=== PATIENT | male | born 1975 | race Caucasian/White ===

== ENCOUNTER 2018-01-27 05:26 | Emergency (ER) | payer OTHER ==
[2018-01-27 07:04] VITALS: BP 125/83; PULSE 87; TEMP 98.9
--- NOTE | 2018-01-27 07:44 | PDOC ---
Attending Attestation - HPI HPI: 01/27/18 08:47 The patient is a 42-year-old male with no significant past medical history, who presents to the emergency department today complaining of diffuse body aches for 2 days. The patient comes in today due to severe joint pain in all extremities. The patient reports a fever of 40 degrees centigrade and endorses a headache. He explains he had 1 episode like this in the past but the current pain is more severe. He also reports bloody stool for approximately 15 days. Of note, the patient works outdoors. Denies chest pain, back pain. Denies nausea, vomiting, diarrhea, constipation. Denies recent travel. Allergies: NKA Social history: Social alcohol. Surgical history: none reported Family history: none reported PCP: unknown - Physicial Exam PE: 01/27/18 08:49 ADULT Vitals: Triage vital signs reviewed General Appearance: No acute distress, well nourished, well developed Chest Wall: Nontender Cardiac: Regular rate and rhythm, no murmurs, no rubs, no gallops Lungs: Clear to auscultation bilateral, good air movement bilaterally Abdomen: Soft, nondistended, normal bowel sounds, nontender to palpation Genitourinary: Rectal: Exam deferred Extremities: Full range of motion to all extremities, no cyanosis, clubbing, or edema Skin: Warm and dry, no rashes or lesions, no rash, no petechiae - Medical Decision Making 01/27/18 10:12 Chest X-Ray was reviewed by Dr. Avalos and over-read by radiology. Impression: No evidence of active pulmonary disease. Documentation prepared by Jenifer Sanchez, acting as medical logistics specialist for Jaylon Avalos MD. <Jenifer Sanchez - Last Filed: 01/27/18 10:12> - Resident Resident Name: Marlyn Ag - ED Attending Attestation I have performed the following: I have examined & evaluated the patient, The case was reviewed & discussed with the resident, I agree w/resident's findings & plan, Exceptions are as noted - HPI HPI: 01/27/18 15:06 No elevated white blood cell count platelets normal CBC normal OX normal. Chest x-ray urinalysis unremarkable. Patient feels better after fluids and Tylenol Take panel Babesia Lyme and early velia are all still pending Differential diagnosis includes viral infection versus tickborne infection. - Medical Decision Making 42 years old with 2 day history of fever chills body aches. No travel no sick contacts mild headache no neck stiffness mild nausea no vomiting no diarrhea no abdominal pain no rashes does work outside occasionally Labs within normal limits chest x-ray urinalysis systems is no acute pathology. Status post IV fluids and Tylenol patient feels much better ambulate comfortably around the emergency department. At this time fever 2 days with no obvious source differential diagnosis includes viral infection versus tickborne infection. Tick panel including Lyme her lochia and Babesia have been sent. These results will not be available today. We've arranged for the patient to follow up tomorrow in our clinic where the results of these tests can be reviewed <Jaylon Avalos - Last Filed: 01/27/18 15:18>
--- NOTE | 2018-01-27 07:53 | PDOC ---
History of Present Illness - General Chief Complaint: Cold Symptoms Stated Complaint: BODY PAIN Time Seen by Provider: 01/27/18 07:14 History Source: Patient, Mechanical Spreader Operator Used Exam Limitations: Language Barrier - History of Present Illness Initial Comments: 01/27/18 08:08 HPI: *grounds restoration specialist was used Patient is a 42yo male with no significant PMH presenting to ED with son with complaints of body aches x 2 days. Patient states that he has been having "severe pain in his joints" with the spine and wrists hurting the most. Patient said he had experienced one episode like this 2 months ago but it went away with a home remedy of [place] and cinnamon. Pain is associated with fever which patient self reports was 40 degrees, headache and nausea. He has been taking acetaminophen for the pain. He denies congestion, cough, chest pain, abdominal pain, vomiting, diarrhea, urinary symptoms. He denies recent travel. Patient also states that he has noticed blood in his stool for the past 15 days but states that it has been going on for a while. PMH: As per HPI. PSH: R knee Meds: None Allergies: None Known Social: denies tobacco use, occasional alcohol use, denies illicit drug use Past History - Past Medical History Allergies/Adverse Reactions: Allergies Allergy/AdvReac Type Severity Reaction Status Date / Time No Known Allergies Allergy Verified 01/27/18 07:01 Home Medications: Ambulatory Orders NK [No Known Home Medication] 10/03/15 - Immunization History Immunization Up to Date: Yes - Suicide/Smoking/Psychosocial Hx Smoking History: Never smoked Have you smoked in the past 12 months: No Number of Cigarettes Smoked Daily: 0 Cigars Per Day: 0 Information on smoking cessation initiated: No Hx Alcohol Use: No Drug/Substance Use Hx: No Review of Systems - Review of Systems Comments:: 01/27/18 08:15 ROS: *Mechanical Spreader Operator was used* Constitutional: fevers, fatigue, NO chills HEENT: No Rhinorrhea, nasal congestion, visual changes Cardiovascular: No chest pain, syncope, palpitations, lightheadedness Respiratory: No Cough, SOB, Hemoptysis, Gastrointestinal: Nausea, blood in stools. No Abdominal pain, Vomiting, Constipation, Diarrhea, Melena Genitourinary: No Dysuria, Frequency, Urgency, Hesitancy, Hematuria, Flank pain Musculoskeletal: Arthralgia, Myalgia Skin: No rashes, itching, bruising, pallor Neurologic: Headache. No Numbness, Weakness, or Tingling 01/27/18 15:14 *Physical Exam - Vital Signs Last Vital Signs Temp Pulse Resp BP Pulse Ox 98.9 F 87 18 125/83 97 01/27/18 06:00 01/27/18 06:00 01/27/18 06:00 01/27/18 06:00 01/27/18 06:00 - Physical Exam Comments: 01/27/18 08:14 Physical Exam: General Appearance: Patient lying in bed. Nourished. No Apparent Distress HEENT: EOMI, HEIDI. No Pharyngeal Erythema, Tonsillar Exudate, Tonsillar Erythema Neck: No Cervical Lymphadenopathy Respiratory/Chest: Lungs Clear, Normal Breath Sounds. No Crackles, Rales, Rhonchi, Wheezing Cardiovascular: Regular Rhythm, Regular Rate. No JVD, Murmur, Gallops, Rubs Gastrointestinal/Abdominal: Normal Bowel Sounds, Soft. No Guarding, Rebound, Tenderness Musculoskeletal: No CVA Tenderness, no spinal tenderness, no joint tenderness, swelling or effusions Extremity: Normal Capillary Refill Integumentary: Normal Color, Dry, Warm. Surgical scar on R knee Neurologic: mailroom associate II-XII NML intact, Fully Oriented, Alert, Normal Mood/Affect, Normal Response, Motor Strength 5/5. 01/27/18 18:09 ED Treatment Course - LABORATORY CBC & Chemistry Diagram: 01/27/18 08:20 01/27/18 08:20 Medical Decision Making - Medical Decision Making 01/27/18 08:17 Patient is a 42 yo male with no significant PMH presenting with complaints of arthralgia x 2 days associated with headache and fatigue. Patient also reported having a fever of 40 degrees C. He has been taking Tylenol for the pain which somewhat relieved symptoms. He denies neck stiffness, changes in vision, chest pain, SOB, palpitations, abdominal pain, N/V/D, dysuria. He admitted to having blood in his stool for 15 days. He denied recent travel, illicit drug use and IV drug use. Possible causes of patient's symptoms include meningitis, sinusitis, flu, endocarditis, pericarditis, pneumonia, ischemic colitis, infectious colitis, Lyme Disease, Babesiosis, Ehrlicia. Because patient reported fever and joint pains concerning for infection. Blood cultures were drawn. FOBT also performed because patient reported blood in the stool. CBC and CMP ordered to evaluate hemoglobin and WBC as well as electrolyte balance. Due to the nature of patient's presentation and geographical location, we were concerned for Babesia, Lyme or Ehrlicia. Blood panels were drawn. Patient was given Tylenol for pain control. FOBT returned negative, abdominal causes for patients presentation were ruled out. CBC and CMP returned wnl which ruled out active infection. Labs for Lyme, Babesiosis and Ehrlicia will take longer to return. Patient reported relief with Tylenol and IVF. Since CBC and CMP returned wnl and vital signs were wnl, patient was deemed stable and discharged home with an appointment made at [facility] tomorrow morning. Patient was advised to go to the appointment and follow up with lab work that is still pending. Patient was given return precautions and verbalized understanding. 01/27/18 15:15 *DC/Admit/Observation/Transfer Diagnosis at time of Disposition: Myalgia Arthralgia Qualifiers: Joint pain location: unspecified Qualified Code(s): M25.50 - Pain in unspecified joint Headache Qualifiers: Headache type: unspecified Headache chronicity pattern: unspecified pattern - Discharge Dispostion Disposition: HOME Condition at time of disposition: Improved - Referrals - Patient Instructions Printed Discharge Instructions: DI for Arthralgia, DI for Headache Additional Instructions: You were seen today because you were complaining of body aches, headache and fever. We did blood tests and an xray to see if you were having an infection. The blood tests came back normal. There are additional blood tests that are checking for some organisms that may be causing your symptoms, but it may take a couple of days for the results to come back. You have also asked for us to find a primary care doctor for you because you do not have one. There is an appointment set up for you tomorrow, January 28, 2018 at 9:30 am at [address] Continue to take Tylenol or Motrin for pain. Please come back to the ED if your pain gets worse, your fever comes back, if you start getting severe headaches and neck pain. Thank you Print Language: TRISTANIAN - Post Discharge Activity
[2018-01-27] MEDS ORDERED: SODIUM CHLORIDE 500 ML IV STA (07:56)
[2018-01-27] MEDS ORDERED: ACETAMINOPHEN 1000 MG/100 ML VIAL (NON FORMULARY) IVPB ONE (07:56)
[2018-01-27] MEDS ORDERED: SODIUM CHLORIDE 1,000 ML IV STA (08:03)
[2018-01-27] MEDS ORDERED: ACETAMINOPHEN INJECTION 100 ML IVPB ONE (08:15)
[2018-01-27 08:31] LABS: BASO % 1.1 % (0-2.0); EOS % 0.4 % (0-4.5); HEMOGLOBIN 15.8 GM/dL (11.7-16.9); LYMPH % 48.6 % (8-40); MCH 31.4 pg (25.7-33.7); MCHC 33.7 g/dl (32.0-35.9); MEAN CELL VOLUME 93.1 fl (80-96); MEAN PLT VOLUME 8.6 fl (7.5-11.1); NEUT % 34.9 % (42.8-82.8); PLATELET COUNT 157 K/MM3 (134-434); RBC 5.05 M/mm3 (4.00-5.60); RDW 13.3 % (11.9-15.9)
[2018-01-27 08:44] LABS: URINE APPEARANCE CLEAR; URINE BILIRUBIN NEGATIVE (<2.0 mg/dL); URINE COLOR YELLOW; URINE GLUCOSE (UA) NEGATIVE (NEGATIVE); URINE KETONE 1+ (NEGATIVE); URINE LEUK ESTERASE NEGATIVE (NEGATIVE); URINE NITRITE NEGATIVE (NEGATIVE); URINE PROTEIN NEGATIVE (NEGATIVE); URINE UROBILINOGEN NEGATIVE mg/dL (0.2-1.0)
[2018-01-27 08:48] LABS: URINE APPEARANCE CLEAR; URINE BILIRUBIN NEGATIVE (<2.0 mg/dL); URINE COLOR YELLOW; URINE GLUCOSE (UA) NEGATIVE (NEGATIVE); URINE KETONE 1+ (NEGATIVE); URINE LEUK ESTERASE NEGATIVE (NEGATIVE); URINE NITRITE NEGATIVE (NEGATIVE); URINE PROTEIN NEGATIVE (NEGATIVE); URINE UROBILINOGEN NEGATIVE mg/dL (0.2-1.0)
[2018-01-27 09:03] LABS: ALK PHOS 82 U/L (45-117); ANION GAP 8 (8-16); BILIRUBIN,TOTAL 0.4 mg/dL (0.2-1.0); BLOOD UREA NITROGEN 12 mg/dL (7-18); CALCIUM 8.4 mg/dL (8.5-10.1); CHLORIDE 101 mmol/L (98-107); CO2 28 mmol/L (21-32); CREATININE 1.1 mg/dL (0.7-1.3); GLUCOSE,RANDOM 132 mg/dL (74-106); POTASSIUM 4.3 mmol/L (3.5-5.1); SGOT/AST 48 U/L (15-37); SGPT/ALT 68 U/L (12-78); SODIUM 137 mmol/L (136-145); TOT PROT 8.2 g/dl (6.4-8.2)
[2018-01-27] MEDS ORDERED: IBUPROFEN 600 MG TABLET (FP) PO ONE ×2 (09:36→09:55)
[2018-02-01 06:17] LABS: BABESIA MICROTI ANTIBODY IGG <1:10 (Neg:<1:10); BABESIA MICROTI ANTIBODY IGM <1:10 (Neg:<1:10); E. chaff IgG Negative (Neg:<1:64)
[2018-02-02 00:15] LABS: E. chaffeensis Negative (Negative)
== END 2018-01-27 10:56 | disposition home or self-care (01) ==
LOC: JER 05:26
PROC: 3E0337Z Introduction of Electrolytic and Water Balance Substance into Peripheral Vein, Percutaneous Approach (ICD-10-PCS; principal; 2018-01-27)
PROC: 3E033NZ Introduction of Analgesics, Hypnotics, Sedatives into Peripheral Vein, Percutaneous Approach (ICD-10-PCS; 2018-01-27)
DX: M79.1 Myalgia (principal); M54.89 Other dorsalgia; M25.532 Pain in left wrist; M25.531 Pain in right wrist; K92.1 Melena
CPT/HCPCS: 36415; 71045-TC-FY; 80053; 81003; 82272; 83605; 85025; 86618; 86666; 86753; 87040; 87086; 87798; 99281-25; J0131; J7030

== ENCOUNTER 2018-04-07 07:22 | Emergency (ER) | payer OTHER ==
[2018-04-07 07:31] VITALS: BP 121/80; PULSE 60; TEMP 97.8; BMI 26.6
--- NOTE | 2018-04-07 08:23 | PDOC ---
History of Present Illness - General Chief Complaint: Pain Stated Complaint: CYST BEHIND EAR Time Seen by Provider: 04/07/18 08:04 - History of Present Illness Initial Comments: 04/07/18 08:18 42 year old man who presents with boil behind the R ear that started 2 months ago and drained once with red PMHX: as in HPI PSHX: see below Meds: Allergies: Tob: Etoh: Rec drugs: PCP: Rigger Helper: [id number] Past History - Past Medical History Allergies/Adverse Reactions: Allergies Allergy/AdvReac Type Severity Reaction Status Date / Time No Known Allergies Allergy Verified 04/07/18 07:31 Home Medications: Ambulatory Orders Cephalexin Monohydrate [Keflex -] 500 mg PO Q6H 10 Days #40 capsule 04/07/18 COPD: No - Immunization History Immunization Up to Date: Yes - Suicide/Smoking/Psychosocial Hx Smoking History: Never smoked Have you smoked in the past 12 months: No Number of Cigarettes Smoked Daily: 0 Cigars Per Day: 0 Hx Alcohol Use: No Drug/Substance Use Hx: No *Physical Exam - Vital Signs Last Vital Signs Temp Pulse Resp BP Pulse Ox 97.8 F 60 16 121/80 98 04/07/18 07:23 04/07/18 07:23 04/07/18 07:23 04/07/18 07:23 04/07/18 07:23 *DC/Admit/Observation/Transfer Diagnosis at time of Disposition: Boil, Abscess - Discharge Dispostion Disposition: HOME Condition at time of disposition: Stable Decision to Admit order: No - Prescriptions Prescriptions: Cephalexin Monohydrate [Keflex -] 500 mg PO Q6H 10 Days #40 capsule - Referrals Referrals: Clari Hill MD [Staff Physician] - Christopher Ro MD [Staff Physician] - - Patient Instructions Printed Discharge Instructions: Telly DI for Skin Abscess Additional Instructions: You were seen in the ED for complaints of boil behind the R ear. In the ED you were evaluated and there does not appear to be an acute need for immediate hospitalization. You are advised to follow up with your primary care physician within 1 week. You were given a 10 day prescription to antibiotics and advised to take the medications as directed. You were given a referral for dermatology and ear, nose and throat specialists. Please follow up within 1 week. Return to the ED immediately if you experience worsening pain at the wound site , worsening or large amount of bleeding, pain in the jaw, fever, headache, nausea or vomiting. Usted fue visto en el departamento de emergencias por [facility]. En el servicio de urgencias fue evaluado y no parece antonia sade necesidad aguda de hospitalizacin inmediata. Se le recomienda realizar un seguimiento con ortiz mdico de atencin primaria dentro de 1 semana. Le dieron sade receta de 10 zhou para antibiticos y le recomendaron arcadio los medicamentos segn las indicaciones. Le dieron un referido para especialistas en dermatologa y otorrinolaringologa. Por favor haz un seguimiento dentro de 1 semana. Regrese al servicio de urgencias de inmediato si experimenta un empeoramiento del dolor en el sitio de la herida, empeoramiento o sade gran cantidad de sangrado, dolor en la mandbula, fiebre, dolor de serge, nuseas o vmitos. - Post Discharge Activity
[2018-04-07] MEDS ORDERED: CEPHALEXIN MONOHYDRATE 500 MG CAPSULE (UD) PO ONE (10:29)
[2018-04-07] MEDS ORDERED: CEPHALEXIN MONOHYDRATE 500 MG CAPSULE (UD) ONE (10:36)
== END 2018-04-07 10:48 | disposition home or self-care (01) ==
LOC: JER 07:22
DX: Q18.1 Preauricular sinus and cyst (principal)
CPT/HCPCS: 99281-25

== ENCOUNTER 2019-09-08 14:39 | Emergency (ER) | payer OTHER ==
[2019-09-08 15:04] VITALS: BP 122/82; PULSE 77; TEMP 98.2; BMI 30.9
--- NOTE | 2019-09-08 15:05 | PDOC ---
Rapid Medical Evaluation Time Seen by Provider: 09/08/19 14:46 Medical Evaluation: Allergies Allergy/AdvReac Type Severity Reaction Status Date / Time No Known Allergies Allergy Verified 04/07/18 07:31 Vital Signs Temp Pulse Resp BP Pulse Ox 98.2 F 77 17 122/82 100 09/08/19 14:54 09/08/19 14:54 09/08/19 14:54 09/08/19 14:54 09/08/19 14:54 09/08/19 15:05 CC: rash to penis PE: deferred Orders: nothing Patient will proceed to ED for evaluation. Discharge Disposition - Diagnosis Rash of penis - Referrals - Patient Instructions - Post Discharge Activity
--- NOTE | 2019-09-08 15:30 | PDOC ---
History of Present Illness - General Chief Complaint: Rash Stated Complaint: PAIN Time Seen by Provider: 09/08/19 14:46 History Source: Patient Exam Limitations: Clinical Condition - History of Present Illness Initial Comments: 09/08/19 15:41 Patient with no significant past medical history present with complaint of 2 months history of lesion to glans of the penis with burning sensation to tip of penis due to skin irritations. Patient is uncircumcised and reported using using [id number] aloe vera for symptoms for 2 months with no improvement. Patient believes symptoms was caused by dirty water in his shower from his apartment. Denies any other symptoms. Denies testicular pain or swelling. Denies penile discharge or burning with urination Timing/Duration: reports: other (2 months) Past History - Past Medical History Allergies/Adverse Reactions: Allergies Allergy/AdvReac Type Severity Reaction Status Date / Time No Known Allergies Allergy Verified 04/07/18 07:31 Home Medications: Ambulatory Orders Cephalexin Monohydrate [Keflex -] 500 mg PO Q6H 10 Days #40 capsule 04/07/18 Clotrimazole/Betamet Diprop [Lotrisone Cream (Small Tube)] 1 applic TP BID 7 Days #1 tube 09/08/19 Valacyclovir HCl [Valtrex -] 500 mg PO BID 5 Days #10 tablet 09/08/19 COPD: No - Immunization History Immunization Up to Date: Yes - Psycho Social/Smoking Cessation Hx Smoking History: Never smoked Have you smoked in the past 12 months: No Number of Cigarettes Smoked Daily: 0 Cigars Per Day: 0 Information on smoking cessation initiated: No Hx Alcohol Use: No Drug/Substance Use Hx: No Review of Systems - Review of Systems Able to Perform ROS?: Yes Is the patient limited Mauritian proficient: No Constitutional: No: Symptoms Reported, See HPI, Chills, Diaphoresis, Fever, Loss of Appetite, Malaise, Night Sweats, Weakness, Weight Stable, Unintentional Wgt. Loss, Unexplained wgt Loss, Other HEENTM: No: Symptoms Reported, See HPI, Eye Pain, Blurred Vision, Tearing, Recent change in vision, Double Vision, Cataracts, Ear Pain, Ocular Prothesis, Ear Discharge, Nose Pain, Nose Congestion, Tinnitus, Nose Bleeding, Hearing Loss , Throat Pain, Throat Swelling, Mouth Pain, Dental Problems, Difficulty Swallowing, Mouth Swelling, Other Respiratory: No: Symptoms reported, See HPI, Cough, Orthopnea, Shortness of Breath, SOB with Exertion, SOB at Rest, Stridor, Wheezing, Productive cough, Hemoptysis, Other Cardiac (ROS): No: Symptoms Reported, See HPI, Chest Pain, Edema, Irregular Heart Rate, Lightheadedness, Palpitations, Syncope, Chest Tightness, Other : Yes: Symptoms Reported, See HPI, Lesions (rash to gland of penis). No: Discharge, Frequency, Flank Pain, Hematuria, Urgency, Testicular Mass, Testicular Swelling, Testicular Pain Musculoskeletal: No: Symptoms Reported All Other Systems: Reviewed and Negative *Physical Exam - Vital Signs Last Vital Signs Temp Pulse Resp BP Pulse Ox 98.2 F 77 17 122/82 100 09/08/19 14:54 09/08/19 14:54 09/08/19 14:54 09/08/19 14:54 09/08/19 14:54 - Physical Exam General Appearance: Yes: Nourished, Appropriately Dressed. No: Apparent Distress HEENT: positive: Normal ENT Inspection Neck: positive: Supple Respiratory/Chest: negative: Respiratory Distress, Accessory Muscle Use Male Genitalia: positive: other (multiple areas of erythematous superficial skin eruption consistent with vesicular lesions to glans of penis and uncircumcised male. New erythema to shaft of penis. No testicular pain or swelling.). negative: discharge, testicular tenderness, testicular mass, epididymus tender Musculoskeletal: positive: Normal Inspection Extremity: positive: Normal Inspection Integumentary: positive: Normal Color Neurologic: positive: Fully Oriented, Alert, Normal Response Medical Decision Making - Medical Decision Making 09/08/19 15:44 Patient with no significant past medical history present with complaint of 2 months history of lesion to glans of the penis with burning sensation to tip of penis due to skin irritations. Patient is uncircumcised and reported using using [id number]-[id number]-vcawhmf aloe vera for symptoms for 2 months with no improvement. Patient believes symptoms was caused by dirty water in his shower from his apartment. Denies any other symptoms. Denies testicular pain or swelling. Denies penile discharge or burning with urination Exam significant for multiple areas of erythematous superficial skin eruption consistent with vesicular lesions to glans of penis and uncircumcised male. New erythema to shaft of penis. No testicular pain or swelling. Patient stable for discharge on Valtrex for herpes lesion and Lotrisone for possible Adriana with urology follow-up. Viral culture from lesion swab obtained from testicular lesion and sent to lab for testing Discharge - Discharge Information Problems reviewed: Yes Clinical Impression/Diagnosis: Rash of penis Condition: Stable Disposition: HOME - Admission No - Additional Discharge Information Prescriptions: Clotrimazole/Betamet Diprop [Lotrisone Cream (Small Tube)] 1 applic TP BID 7 Days #1 tube Valacyclovir HCl [Valtrex -] 500 mg PO BID 5 Days #10 tablet - Follow up/Referral Referrals: Robert Amin MD [Staff Physician] - - Patient Discharge Instructions Patient Printed Discharge Instructions: DI for Genital Herpes Additional Instructions: Your rash symptoms on the penis could be caused by fungus or herpes infection. You have been tested for herpes infection which takes a few days to come back. Take prescribed medication as prescribed for symptoms. Follow-up referred to urologist. Los sntomas de la erupcin en el pene pueden ser causados por hongos o infeccin por herpes. Se le mena hecho la prueba de infeccin por herpes que tarda unos zhou en volver. [place] medicamentos recetados segn lo prescrito para los sntomas. Seguimiento referido al urlogo Print Language: AFGHAN - Post Discharge Activity
== END 2019-09-08 15:34 | disposition home or self-care (01) ==
LOC: JERFT 14:39
DX: N48.89 Other specified disorders of penis (principal)
CPT/HCPCS: 87252; 99283-25

== ENCOUNTER 2021-12-01 11:46 | Emergency (ER) | payer OTHER ==
[2021-12-01 12:07] VITALS: BP 128/77; PULSE 93; TEMP 98.2; BMI 30.9
[2021-12-01] MEDS ORDERED: KETOROLAC TROMETHAMINE 30 MG/1 ML VIAL IM ONE (12:49)
[2021-12-01] MEDS ORDERED: KETOROLAC TROMETHAMINE 30 MG/1 ML VIAL ONE (12:55)
== END 2021-12-01 16:54 | disposition home or self-care (01) ==
LOC: JERFT 11:46
PROC: 3E0233Z Introduction of Anti-inflammatory into Muscle, Percutaneous Approach (ICD-10-PCS; principal; 2021-12-01)
DX: S00.81XA Abrasion of other part of head, initial encounter (principal); S50.812A Abrasion of left forearm, initial encounter; S50.312A Abrasion of left elbow, initial encounter; Y04.8XXA Assault by other bodily force, initial encounter
CPT/HCPCS: 70450-TC; 73030-TC-LT-FY; 99284-25

== ENCOUNTER 2022-01-24 22:09 | Emergency (ER) | payer OTHER ==
[2022-01-24 22:32] VITALS: BP 118/72; PULSE 70; TEMP 98.2; BMI 28.2
[2022-01-25] MEDS ORDERED: BACITRACIN 15 GM TUBE TOPICAL OINTMENT TP ONE (03:04)
[2022-01-25] MEDS ORDERED: BACITRACIN 0.9 GM PACKET ONE ×2 (03:05→03:06)
== END 2022-01-25 03:00 | disposition left against medical advice (07) ==
LOC: JER 22:09
DX: T23.102A Burn of first degree of left hand, unspecified site, initial encounter (principal)
CPT/HCPCS: 99283-25

== ENCOUNTER 2023-03-28 14:29 | Emergency (ER) | payer OTHER ==
[2023-03-28 14:35] VITALS: BP 114/77; PULSE 76; RESP 18; TEMP 98.3; BMI 28.2
[2023-03-28] MEDS ORDERED: ACETAMINOPHEN 500 MG TABLET (FP) PO ONE (17:26)
[2023-03-28] MEDS ORDERED: ACETAMINOPHEN 500 MG TABLET (FP) ONE (17:34)
== END 2023-03-28 17:45 | disposition home or self-care (01) ==
LOC: JER 14:29 → JERFT 14:29
DX: S32.2XXA Fracture of coccyx, initial encounter for closed fracture (principal); M54.50 Low back pain, unspecified; W10.9XXA Fall (on) (from) unspecified stairs and steps, initial encounter
CPT/HCPCS: 72220-TC-FY; 99283-25

== ENCOUNTER 2023-04-04 15:12 | Emergency (ER) | payer OTHER ==
[2023-04-04 15:21] VITALS: BP 128/87; PULSE 113; RESP 18; TEMP 97.5
[2023-04-04] MEDS ORDERED: KETOROLAC TROMETHAMINE 30 MG/1 ML VIAL IM ONE (15:46)
[2023-04-04] MEDS ORDERED: LIDOCAINE 5% TOPICAL PATCH TP ONE (15:48)
[2023-04-04] MEDS ORDERED: LIDOCAINE 5% TOPICAL PATCH ONE (15:57)
[2023-04-04] MEDS ORDERED: KETOROLAC TROMETHAMINE 30 MG/1 ML VIAL ONE (15:57)
[2023-04-04] MEDS ORDERED: LIDOCAINE PATCH REMOVAL MC SCH (22:00)
== END 2023-04-04 16:17 | disposition home or self-care (01) ==
LOC: JERFT 15:12
PROC: 3E0233Z Introduction of Anti-inflammatory into Muscle, Percutaneous Approach (ICD-10-PCS; principal; 2023-04-04)
DX: M54.50 Low back pain, unspecified (principal); M53.3 Sacrococcygeal disorders, not elsewhere classified
CPT/HCPCS: 99284-25